=== PATIENT | male | born 1980 | race Caucasian/White ===

== ENCOUNTER 2017-04-30 17:19 | Emergency (ER) | payer OTHER ==
[~2017-04-30] VITALS: Ht 182.9 cm; Wt 77.1 kg
[~2017-04-30 17:19] MED LIST: IBUP800 PO
[2017-04-30] MEDS ORDERED: Cleocin HCl300 MG PO (18:49)
== END 2017-04-30 18:55 | disposition home or self-care (01) ==
LOC: ER 17:19
DX: L08.9 Local infection of the skin and subcutaneous tissue, unspecified (principal); F17.200 Nicotine dependence, unspecified, uncomplicated; Z88.6 Allergy status to analgesic agent; Z88.8 Allergy status to other drugs, medicaments and biological substances; W27.0XXA Contact with workbench tool, initial encounter
CPT/HCPCS: 73130; 99283

== ENCOUNTER 2019-05-13 06:59 | Emergency (ER) | payer OTHER ==
[~2019-05-13] VITALS: Ht 180.3 cm; Wt 77.1 kg
[~2019-05-13 06:59] MED LIST changes: +Cleocin HCl300 MG PO
[2019-05-13] MEDS ORDERED: Bactrim Ds Tab1 EACH PO ×2 (08:53→08:54)
== END 2019-05-13 09:04 | disposition home or self-care (01) ==
LOC: ER 06:59
DX: L02.511 Cutaneous abscess of right hand (principal); F17.210 Nicotine dependence, cigarettes, uncomplicated; Z23 Encounter for immunization; Z88.6 Allergy status to analgesic agent; Z88.8 Allergy status to other drugs, medicaments and biological substances
CPT/HCPCS: 10060; 73140; 90471; 90714; 99283-25; A9270-GY